=== PATIENT | female | born 1975 ===

== ENCOUNTER 2016-10-19 18:32 | Emergency (ER) | payer BC ==
[2016-10-19 18:49] VITALS: BMI 24.6
[2016-10-19 18:53] VITALS: TEMP 98.9
--- NOTE | 2016-10-19 19:10 | ED PDOC ---
Arrival/HPI - General Chief Complaint: Dental Pain Time Seen by Provider: 10/19/16 19:01 Historian: Patient - History of Present Illness Narrative History of Present Illness (Text): 10/19/16 19:07 41 y/o female, pmh including rheumatoid arthrithis, nkda, c/o lt. upper molar pain x 5 days with no fall or trauma. Pt. has lt. upper facial swelling which has been going down, seen by her own dentist about 2 days ago which she is on the amoxicillin, had an episode of fever yesterday but resolved, no night sweat , no numbness or tingling, no chest pain or shortness of breath, no other medical or psychological complaints. Past Medical History - Provider Review Nursing Documentation Reviewed: Yes - Infectious Disease Hx of Infectious Diseases: None - Tetanus Immunization Tetanus Immunization: Unknown - Past Medical History Past Medical History: Non-Contributing - Cardiac Hx Cardiac Disorders: No - Pulmonary Hx Respiratory Disorders: No - Neurological Hx Neurological Disorder: No - HEENT Hx HEENT Disorder: No - Renal Hx Renal Disorder: No - Endocrine/Metabolic Hx Endocrine Disorders: No - Hematological/Oncological Hx Blood Disorders: No - Integumentary Hx Dermatological Disorder: No - Musculoskeletal/Rheumatological Hx Rheumatoid Arthritis: Yes - Gastrointestinal Hx Gastrointestinal Disorders: No - Genitourinary/Gynecological Hx Genitourinary Disorders: No - Psychiatric Hx Depression: No Hx Emotional Abuse: No Hx Physical Abuse: No Hx Substance Use: No - Past Surgical History Past Surgical History: No Previous - Surgical History Hx Section: Yes (x 1) - Anesthesia Hx Anesthesia: No Hx Anesthesia Reactions: No Hx Malignant Hyperthermia: No - Suicidal Assessment Feels Threatened In Home Enviroment: No Family/Social History - Physician Review Nursing Documentation Reviewed: Yes Family/Social History: Unknown Family HX Smoking Status: Light Smoker < 10 Cigarettes Daily Hx Alcohol Use: No Hx Substance Use: No Hx Substance Use Treatment: No Allergies/Home Meds Allergies/Adverse Reactions: Allergies latex Allergy (Verified 01/04/16 18:23) RASH Home Medications: Home Meds Medication Instructions Recorded Confirmed Etanercept [Enbrel] 50 mg SC SUN 05/02/12 10/15/13 Methylprednisolone [Medrol] 8 mg PO DAILY 10/15/13 10/15/13 Review of Systems - Review of Systems Constitutional: Fevers. absent: Fatigue Eyes: absent: Vision Changes ENT: Other (dental pain). absent: Hearing Changes Respiratory: absent: Cough Cardiovascular: absent: Chest Pain Gastrointestinal: absent: Abdominal Pain, Diarrhea, Nausea, Vomiting Neurological: absent: Headache, Dizziness, Focal Weakness, Gait Changes, Speech Changes, Facial Droop, Disequilibrium, Seizure Physical Exam Vital Signs Reviewed: Yes Vital Signs Temp Pulse Resp BP Pulse Ox 10/19/16 18:49 98.9 F 91 H 17 121/78 95 Temperature: Afebrile Blood Pressure: Normal Pulse: Regular Respiratory Rate: Normal Appearance: Positive for: Well-Appearing, Non-Toxic, Uncomfortable Pain Distress: Moderate Mental Status: Positive for: Alert and Oriented X 3 - Systems Exam Head: Present: Atraumatic, Normocephalic, Other (mild lt. sided facial cheek swellin. g) Pupils: Present: PERRL Extroacular Muscles: Present: EOMI Conjunctiva: Present: Normal Ears: Present: NORMAL TM, Normal Canal. No: Erythema Mouth: Present: Moist Mucous Membranes Pharnyx: Present: Soft Palate/Uvular Edema, Other (visible lt. upper and lower molar dental caries and no gingival abscess. ). No: ERYTHEMA, EXUDATE, TONSILS ENLARGED, Peritonsilar Swelling, Uvular Deviation Nose (External): Present: Atraumatic. No: Abrasion, Contusion, Laceration Nose (Internal): Present: Normal Inspection, No Active Bleeding. No: Rhinorrhea , Septal Hematoma, Epistaxis Neck: Present: Normal Range of Motion, Trachea Midline. No: MIDLINE TENDERNESS , Paraspinal Tenderness, Lymphadenopathy Respiratory/Chest: Present: Clear to Auscultation, Good Air Exchange. No: Respiratory Distress, Accessory Muscle Use, Wheezes, Decreased Breath Sounds, Rales, Retracting, Rhonchi, Tachypneic, Tender to Palpation Cardiovascular: Present: Regular Rate and Rhythm, Normal S1, S2. No: Murmurs Abdomen: Present: Normal Bowel Sounds. No: Tenderness, Distention, Peritoneal Signs, Rebound, Guarding Back: Present: Normal Inspection Upper Extremity: Present: Normal Inspection. No: Cyanosis, Edema Lower Extremity: Present: Normal Inspection. No: Edema Neurological: Present: GCS=15, Speech Normal, Motor Func Grossly Intact, Gait Normal, Memory Normal Skin: Present: Warm, Dry, Normal Color. No: Rashes Psychiatric: Present: Alert, Oriented x 3, Normal Insight, Normal Concentration Medical Decision Making ED Course and Treatment: 10/19/16 19:18 -Labs -IV clindamycin/toradol -CT facial -Observe and reassess 10/20/16 00:22 -Labs are non-significant except wbc 13.8 -CT show there is dental abscess which the patient stated that the dentist is awared and preparing to drained the abscess for her after the swelling is going down. -Pt. feels much better, request toradol PO, wants to go home , will discharge home. -Discharge with clindamycin, toradol po, stay hydrated, salt water gargling, soft food diet, follow up with your own pmd and dentist within 2 days, return to [facility] ER for any new or worsening signs or symptoms. - Lab Interpretations Lab Results: 10/19/16 20:30 10/19/16 20:30 Lab Results 10/19/16 20:30: WBC 13.8 H D, RBC 4.59, Hgb 12.2, Hct 37.6, MCV 81.9, MCH 26.6, MCHC 32.4, RDW 15.1 H, Plt Count 311, MPV 10.8, Gran % 79.5 H, Lymph % (Auto) 13.0 L, [place] % (Auto) 6.4 H, Eos % (Auto) 0.8 L, Baso % (Auto) 0.3, Gran # 10.99 H, Lymph # 1.8, [place] # 0.9 H, Eos # 0.1, Baso # 0.04, Sodium 137, Potassium 4.2, Chloride 101, Carbon Dioxide 28, Anion Gap 12, BUN 18, Creatinine 0.6, Est GFR ( Amer) > 60, Est GFR (Non-Af Amer) > 60, Random Glucose 100, Calcium 9.7, Total Bilirubin 0.3, AST 20, ALT 27, Alkaline Phosphatase 69, Total Protein 8.1, Albumin 4.1, Globulin 4.0, Albumin/Globulin Ratio 1.0 L I have reviewed the lab results: Yes Interpretation: Abnormal lab values (wbc 13.8) - RAD Interpretation Radiology Orders: 10/19/16 19:06 MAXILLOFACIAL W/CONTRAST [CT] Stat CT Scan MAXILLOFACIAL W/CONTRAST Exam Date: 10/19/16 This imaging exam was performed at [facility] EXAM: CT Maxillofacial With Intravenous Contrast CLINICAL HISTORY: 41 years old, female; Pain; Face pain; Additional info: Lt. Facial swelling, dental pain TECHNIQUE: Axial computed tomography images of the face with intravenous contrast. This CT exam was performed using one or more of the following dose reduction techniques: automated exposure control, adjustment of the mA and/or kV according to patient size, and/or use of iterative reconstruction technique. Coronal and sagittal reformatted images were created and reviewed. CONTRAST: 100 mL of OMNI administered intravenously. COMPARISON: No relevant prior studies available. FINDINGS: Bones/joints: No acute fracture. Soft tissues: A well-defined lucency is identified distal to the root apex of the left canine tooth, measuring 4 x 5 mm. Orbits: Unremarkable. Sinuses: A 2 cm rounded focus of decreased attenuation is identified within the left maxillary sinus, findings suggesting a polyp. No air-fluid levels. No mucoperiosteal thickening. IMPRESSION: Findings distal to the root apex of the left canine which most likely represent a dental abscess. The differential diagnosis includes a periapical cyst, and a possible periapical granuloma (less likely). Dictated By: Darlyn Vinson MD Dictated Date/Time: 10/19/162300 Signed By: Darlyn Vinson MD Date Signed: 2300 Transcribed By: TURNER Transcribe Date/Time : 10/19/162300 Nurse Practitioner Home Assessments: Radiologist - Medication Orders Current Medication Orders: Sodium Chloride (Sodium Chloride 0.9%) 1,000 mls @ 100 mls/hr IV .Q10H TERRA Last Admin: 10/19/16 21:40 Dose: 100 MLS/HR eMAR Start Stop Document 10/19/16 21:40 EQ (Rec: 10/19/16 21:40 EQ [facility] [id number]) Intravenous Solution Start Date 10/19/16 Start Time 21:40 Discontinued Medications Clindamycin Phosphate 900 mg/ (Sodium Chloride) 106 mls @ 106 mls/hr IVPB STAT STA PRN Reason: Protocol Stop: 10/19/16 20:05 Last Admin: 10/19/16 21:40 Dose: 106 MLS/HR eMAR Start Stop Document 10/19/16 21:40 EQ (Rec: 10/19/16 21:40 EQ [facility] [id number]) Intravenous Solution Start Date 10/19/16 Start Time 21:40 Iohexol (Omnipaque 300 100 Ml) Confirm Administered Dose 100 ml IJ .STK-MED ONE Stop: 10/19/16 20:08 Ketorolac Tromethamine (Toradol) 30 mg IVP STAT STA Stop: 10/19/16 19:07 Last Admin: 10/19/16 21:40 Dose: 30 MG IVP Administration Document 10/19/16 21:40 EQ (Rec: 10/19/16 21:40 EQ [facility] [id number]) Charges for Administration # of IVP Administrations 1 - PA / [employer] / Resident Statement MD/DO has reviewed & agrees with the documentation as recorded. Disposition/Present on Arrival - Present on Arrival Any Indicators Present on Arrival: No History of DVT/PE: No History of Uncontrolled Diabetes: No Urinary Catheter: No History of Decub. Ulcer: No History Surgical Site Infection Following: None - Disposition Have Diagnosis and Disposition been Completed?: Yes Diagnosis: Dental abscess Disposition: HOME/ ROUTINE Disposition Time: 00:28 Patient Plan: Discharge Condition: IMPROVED Additional Instructions: Discharge with clindamycin, toradol po, stay hydrated, salt water gargling, soft food diet, follow up with your own pmd and dentist within 2 days, return to [facility] ER for any new or worsening signs or symptoms. Prescriptions: Clindamycin [Cleocin] 300 mg PO QID #40 cap Ketorolac Tromethamine [Toradol] 10 mg PO QID PRN #28 tab PRN Reason: Other Referrals: Leeann Loera MD [Primary Care Provider] - Follow up with primary Stiven Martin DMD [Staff Provider] - Follow up with primary Forms: WORK NOTE
[2016-10-19] MEDS ORDERED: Sodium Chloride 0.9% 1,000 ML IV SCH (19:15)
[2016-10-19] MEDS ORDERED: Iohexol 300 100 ML IJ ONE (20:07)
[2016-10-19 20:57] LABS: ADD MANUAL DIFF? NO
[2016-10-19 21:01] LABS: BASO # 0.04 K/mm3 (0.0-2.0); BASO % 0.3 % (0.0-3.0); EOS # 0.1 (0.0-0.7); EOS % 0.8 % (1.5-5.0); GRAN # 10.99 (1.4-6.5); GRAN % 79.5 % (50.0-68.0); HEMATOCRIT 37.6 % (36.0-48.0); LYMPH # 1.8 (1.2-3.4); MEAN CELL VOLUME 81.9 fL (80.0-105.0); MEAN CORPUSCULAR HEMOGLOBIN 26.6 pg (25.0-35.0); MEAN CORPUSCULAR HGB CONC 32.4 g/dl (31.0-37.0); MEAN PLATELET VOLUME 10.8 fl (7.0-11.0); MONO # 0.9 (0.1-0.6); MONO % 6.4 % (1.0-6.0); PLATELET COUNT 311 10^3/uL (120.0-450.0); RED CELL DISTRIBUTION WIDTH 15.1 % (11.5-14.5); WHITE BLOOD COUNT 13.8 10^3/ul (4.5-11.0)
[2016-10-19 21:12] LABS: ALKALINE PHOSPHATASE 69 U/L (38-133); ALT/SGPT 27 U/L (7-56); AST/SGOT 20 U/L (15-39); BILIRUBIN,TOTAL 0.3 mg/dL (0.2-1.3); BLOOD UREA NITROGEN 18 mg/dL (7-21); CALCIUM 9.7 mg/dL (8.4-10.5); CARBON DIOXIDE 28 mmol/L (21-33); CHLORIDE 101 mmol/L (98-107); GFR AFRICAN-AMERICAN > 60; GLUCOSE,RANDOM 100 mg/dL (70-110); POTASSIUM 4.2 mmol/L (3.6-5.0); SODIUM 137 mmol/L (132-148); TOTAL PROTEIN 8.1 g/dL (5.8-8.3)
--- NOTE | 2016-10-19 23:01 | CT ---
EXAM: CT Maxillofacial With Intravenous Contrast CLINICAL HISTORY: 41 years old, female; Pain; Face pain; Additional info: Lt. Facial swelling, dental pain TECHNIQUE: Axial computed tomography images of the face with intravenous contrast. This CT exam was performed using one or more of the following dose reduction techniques: automated exposure control, adjustment of the mA and/or kV according to patient size, and/or use of iterative reconstruction technique. Coronal and sagittal reformatted images were created and reviewed. CONTRAST: 100 mL of OMNI administered intravenously. COMPARISON: No relevant prior studies available. FINDINGS: Bones/joints: No acute fracture. Soft tissues: A well-defined lucency is identified distal to the root apex of the left canine tooth, measuring 4 x 5 mm. Orbits: Unremarkable. Sinuses: A 2 cm rounded focus of decreased attenuation is identified within the left maxillary sinus, findings suggesting a polyp. No air-fluid levels. No mucoperiosteal thickening. IMPRESSION: Findings distal to the root apex of the left canine which most likely represent a dental abscess. The differential diagnosis includes a periapical cyst, and a possible periapical granuloma (less likely).
[2016-10-20 00:49] VITALS: BP 101/62; PULSE 70; RESP 18; O2SAT 96
== END 2016-10-20 00:58 | disposition home or self-care (01) ==
LOC: ED 18:32
DX: K04.7 Periapical abscess without sinus (principal)
CPT/HCPCS: 70488; 80053; 85025; 96374; 99282; J1885; J7040; Q9967